=== PATIENT | female | born 2000 | race Caucasian/White ===

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

== ENCOUNTER → 2024-08-21 08:52 | Outpatient (BNVA) | payer MEDICAID, SELFPAY | PROVIDERS: PCP Nurse Practitioner Family; Visit Provider Nurse Practitioner Women's Health | DX: Z32.01 Encounter for pregnancy test, result positive (principal); N91.2 Amenorrhea, unspecified | CPT/HCPCS: 81025; 84702; 86850; 86900 ==

== ENCOUNTER → 2024-08-30 09:41 | Outpatient (BNVA) | payer MEDICAID, SELFPAY | PROVIDERS: PCP Nurse Practitioner Family; Visit Provider Obstetrics & Gynecology | DX: Z34.01 Encounter for supervision of normal first pregnancy, first trimester (principal) | CPT/HCPCS: 76801 ==

== ENCOUNTER → 2024-09-11 09:15 | Outpatient (BNVA) | payer MEDICAID, OTHER, SELFPAY | PROVIDERS: PCP Nurse Practitioner Family; Visit Provider Nurse Practitioner Women's Health | DX: Z34.90 Encounter for supervision of normal pregnancy, unspecified, unspecified trimester (principal); Z3A.08 8 weeks gestation of pregnancy | CPT/HCPCS: 80307; 81000; 84443; 85025; 86592; 86762; 86803; 86850; 86900; 87086; 87340; 87491; 87591; 87661; 87806 ==

== ENCOUNTER → 2024-10-10 11:55 | Outpatient (BNVA) | payer OTHER, MEDICAID, SELFPAY | PROVIDERS: PCP Nurse Practitioner Family; Visit Provider Nurse Practitioner Women's Health | DX: O21.9 Vomiting of pregnancy, unspecified (principal); Z3A.08 8 weeks gestation of pregnancy | CPT/HCPCS: 84315; 87624 ==

== ENCOUNTER → 2024-10-31 08:24 | Outpatient (BNVA) | payer OTHER, MEDICAID, SELFPAY | PROVIDERS: PCP Nurse Practitioner Family; Visit Provider Nurse Practitioner Women's Health | DX: Z34.90 Encounter for supervision of normal pregnancy, unspecified, unspecified trimester (principal) | CPT/HCPCS: 82105; 84315 ==

== ENCOUNTER → 2024-12-01 09:39 | Outpatient (BNVA) | payer MEDICAID, SELFPAY | PROVIDERS: PCP Nurse Practitioner Family; Visit Provider Obstetrics & Gynecology | DX: Z36.9 Encounter for antenatal screening, unspecified (principal) | CPT/HCPCS: 76805 ==

== ENCOUNTER → 2024-12-08 14:35 | Outpatient (BNVA) | payer MEDICAID, SELFPAY | PROVIDERS: PCP Nurse Practitioner Family; Visit Provider Obstetrics & Gynecology | DX: Z34.92 Encounter for supervision of normal pregnancy, unspecified, second trimester (principal) | CPT/HCPCS: 84315 ==

== ENCOUNTER → 2025-01-31 09:34 | Outpatient (BNVA) | payer BC, SELFPAY | PROVIDERS: PCP Nurse Practitioner Family; Visit Provider Nurse Practitioner Women's Health | DX: Z34.90 Encounter for supervision of normal pregnancy, unspecified, unspecified trimester (principal) | CPT/HCPCS: 82950; 84315; 85025 ==

== ENCOUNTER → 2025-02-14 08:18 | Outpatient (BNVA) | payer BC, SELFPAY | PROVIDERS: PCP Nurse Practitioner Family; Visit Provider Obstetrics & Gynecology | DX: Z34.90 Encounter for supervision of normal pregnancy, unspecified, unspecified trimester (principal) | CPT/HCPCS: 84315 ==

== ENCOUNTER → 2025-02-26 09:18 | Outpatient (BNVA) | payer BC, SELFPAY | PROVIDERS: PCP Nurse Practitioner Family; Visit Provider Obstetrics & Gynecology | DX: Z36.89 Encounter for other specified antenatal screening (principal) | CPT/HCPCS: 76816; 84315 ==

== ENCOUNTER → 2025-03-15 08:46 | Outpatient (BNVA) | payer BC, SELFPAY | PROVIDERS: PCP Nurse Practitioner Family; Visit Provider Obstetrics & Gynecology | DX: Z34.90 Encounter for supervision of normal pregnancy, unspecified, unspecified trimester (principal) | CPT/HCPCS: 76816; 84315 ==

== ENCOUNTER 2025-03-16 17:20 | Outpatient (CLI) | payer BC, SELFPAY ==
[2025-03-16] VITALS (9 sets, daily range): BP systolic 117–135; BP diastolic 69–88; PULSE 83–110; O2SAT 100; BMI 36.9
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
== END 2025-03-16 20:36 | disposition home or self-care (01) ==
LOC: OPOB 17:26 → OBGYN 17:27
PROVIDERS: PCP Nurse Practitioner Family; Visit Provider Obstetrics & Gynecology
DX: O26.893 Other specified pregnancy related conditions, third trimester (principal); Z3A.35 35 weeks gestation of pregnancy; V89.2XXA Person injured in unspecified motor-vehicle accident, traffic, initial encounter
CPT/HCPCS: 59025; 99211

== ENCOUNTER → 2025-03-26 08:50 | Outpatient (BNVA) | payer BC, MEDICAID, SELFPAY | PROVIDERS: PCP Nurse Practitioner Family; Visit Provider Obstetrics & Gynecology | DX: Z34.90 Encounter for supervision of normal pregnancy, unspecified, unspecified trimester (principal) | CPT/HCPCS: 84315; 87081 ==

== ENCOUNTER → 2025-04-02 08:22 | Outpatient (BNVA) | payer BC, MEDICAID, SELFPAY | PROVIDERS: PCP Nurse Practitioner Family; Visit Provider Obstetrics & Gynecology | DX: Z34.90 Encounter for supervision of normal pregnancy, unspecified, unspecified trimester (principal) | CPT/HCPCS: 84315 ==

== ENCOUNTER → 2025-04-09 08:11 | Outpatient (BNVA) | payer BC, SELFPAY | PROVIDERS: PCP Nurse Practitioner Family; Visit Provider Obstetrics & Gynecology | DX: Z34.90 Encounter for supervision of normal pregnancy, unspecified, unspecified trimester (principal) | CPT/HCPCS: 84315 ==

== ENCOUNTER → 2025-04-16 08:05 | Outpatient (BNVA) | payer BC, MEDICAID, SELFPAY | PROVIDERS: PCP Nurse Practitioner Family; Visit Provider Obstetrics & Gynecology | DX: Z34.90 Encounter for supervision of normal pregnancy, unspecified, unspecified trimester (principal) | CPT/HCPCS: 84315 ==

== ENCOUNTER 2025-04-20 23:33 | Inpatient (IN) | payer BC, MEDICAID, SELFPAY ==
[2025-04-20] VITALS (7 sets, daily range): BP systolic 126–139; BP diastolic 80–93; PULSE 88–96; BMI 37.6
[2025-04-20 23:51] LABS: Hematocrit 37.1 % (36-47); Hemoglobin 11.80 g/dL (11.27-16.99); Mean Corpuscular HGB Conc 31.8 g/dL (30-55); Mean Corpuscular Hemoglobin 27.1 pg (27-33); Mean Corpuscular Volume 85.3 fl (85-98); Nucleated Red Blood Cells % 0 %; Platelet Count 259 10^3/cmm (157-399); Red Blood Count 4.35 10^6/uL (3.85-5.65); White Blood Count 13.29 10^3/uL (3.29-11.43)
[2025-04-21] VITALS (92 sets, daily range): BP systolic 111–157; BP diastolic 52–100; PULSE 79–134; RESP 15–17; TEMP 36.7–37.6; O2SAT 98
[2025-04-21] MEDS: fentaNYL 50 mcg/mL INJ 2mL IVP ×4 (00:21→07:59)
--- NOTE | 2025-04-21 07:14 | PM.OPHPUD ---
Labor & Delivery H&P Update Date of Procedure: April 21, 2025 Date H&P Performed: 04/16/25 Changes to previous documentation: 24-year-old female G1, P0 at 40.2 weeks gestation with JANETH 04/19/2025 by ultrasound. Patient was admitted last night to labor and delivery with complaints of onset of uterine contractions and possible SROM. Patient denied any vaginal bleeding. Nursing staff did pelvic exam and acti prom?negative. Patient's contractions spaced out became irregular through the night although at times she stated her pain was 7 out of 10 and required pain medicine. In review of patient's medical record, I reviewed with her early labor and reviewed the options of going home resting our AROM with possible use of Pitocin to increase uterine contraction frequency and intensity to assist with labor. Patient agreed with AROM and the use of Pitocin. Cervical exam was initially 1 cm, patient presently 4 cm / 80%/-1 vertex presentation. AROM?light meconium stained fluid noted. EFM?category 1, with contractions q. 8 to 10 minutes, some coupling noted. Admission Diagnosis: Planned procedure: Will augment patient's labor with AROM and possibly Pitocin if needed. Risk and benefits reviewed. Related Problem List Diagnoses 1. 40 weeks gestation of :
[2025-04-21] MEDS: oxytocin 30 UNIT/500 ML BAG IV (10:16)
--- NOTE | 2025-04-21 11:21 | P.ANESASSM_ITS ---
Pre-Anesthetic Assessment Height/Weight: Height 1.75 m Weight 115.666 kg Temp Pulse Resp BP Pulse Ox O2 Del Method 98.0 F 104 H 15 134/78 98 Room Air 04/21/25 10:30 04/21/25 09:08 04/21/25 07:59 04/21/25 09:08 04/21/25 00:21 04/21/25 00:02 Social No alcohol and No tobacco Exam alert, oriented x 3, clear to auscultation bilaterally and regular rate & rhythm Airway Submandibular: within normal limits Cervical ROM: within normal limits Mallampati: Class II Dentition: full Pulmonary None reported CV/HEM None reported None reported Hepatic None reported GI Gastroesophageal Reflux Disease Metabolic None reported Musc/skel None reported Neuropsych None reported Anesthetic Plan ASA status: 2 Anesthesia: Regional (specify below) Other: Epidural Medications/Allergies Home Medications ?Medication ?Instructions ?Recorded ?Confirmed ?Last Taken ?Type No Known Home Medications 01/31/25 070 05/04 Unknown History Allergies Allergy/AdvReac Type Severity Reaction Status Date / Time No Known Allergies Allergy Verified 04/20/25 21:03 Current Medications Generic Name Dose Route Start Last Admin Trade Name Freq PRN Reason Stop Dose Admin Fentanyl 25 - 100 mcg 04/20/25 23:08 04/21/25 07:59 Fentanyl 50 Mcg/Ml Inj 2ml IVP 50 mcg Q1H PRN Administration SEVERE PAIN Oxytocin 30 unit in 500 mls @ 1 mls/hr 04/21/25 09:45 04/21/25 10:51 Pitocin IV 2 milliunit/min .Q24H CATRACHITO 2 mls/hr Protocol Titration 1 MILLIUNIT/MIN Sodium Chloride 1,000 mls @ 999 mls/hr 04/21/25 09:56 04/21/25 10:15 Sodium Chloride 0.9% IV 999 mls/hr .Q1H1M PRN Administration See label comments PFSH Anesthesia Medical History (Updated 04/21/25 @ 07:21 by Keyana Norwood DO) No pertinent past medical history NegHx: HTN,DM,Thyroid,DVT/PE PCP: Dr. Rajput No significant medical problems Surgical History No significant past surgical history Family History Mother Diabetes Hypertension Grandfather Heart disease Hypercholesteremia Grandfather Hypercholesteremia Other Hyperlipidemia Denies family history of Colon cancer Ovarian cancer Breast cancer Uterine cancer Thyroid disease Social History Smoking and tobacco/nicotine status: never used tobacco/nicotine Substance/Drug Use: never Female Reproductive History : 1 Data Anesthesia 04/20/25 23:20 Short CBC 04/20/25 Range/Units 23:20 WBC 13.29 H (3.29-11.43) 10^3/uL Hgb 11.80 (11.27-16.99) g/dL Hct 37.1 (36-47) % MCV 85.3 (85-98) fl Plt Count 259 (157-399) 10^3/cmm Neut % (Auto) 86.2 % Neut # (Auto) 11.46 H (1.8-7.7) 10^3/uL Blood Bank 04/20/25 23:20 Blood Type O Positive Rho(D) Type Rh positive Antibody Screen Negative
[2025-04-21] MEDS: ROPivacaine premix 100 MG/50 ML PREMIX 13 MG EPIDURAL (11:55)
--- NOTE | 2025-04-21 12:00 | P.ANES_ITS ---
Anesthesia Procedures Procedure/Date: 04/21/25 Labor Epidural Epidural: Time Out Performed: Yes Consents Signed: Procedure Consent Consent: from patient, risks and benefits reviewed and patient agrees to proceed Lumbar Level: L4-L5 Epidural position: sitting Epidural procedure: sterile prep of area, 1% lidocaine to numb the area, negative for paresthesia passed, neg for paresthesia, test dose given, 1.5% xylocaine 1:200k epi (5 ml), 0.2% Ropivacaine bolus ml (5), placed PCEA, no systemic response, sterile dr essing applied, L.U.D. no apparent complications and 0.2% Ropiavacaine @ mls/hr (13ml) Additional Comments: KENNY at 8cm on second attempt - heme -csf, catheter threaded to 13cm with ease. sterile dressing applied patient positioned supine. Patient educated on bolus feature of PCEA. Adequate analgesia.
--- NOTE | 2025-04-21 16:37 | P.PN_ITS ---
MANAGER DOCUMENT CONTROL Subjective 2 Subjective: Interval history: 24-year-old female G1, P0 at 40.2 weeks gestation, labor augmented with AROM and Pitocin currently at 9 milliunits. Cervix?9 cm / 100%/0 vertex with light meconium stained fluid. Patient comfortable with epidural. Discussion of pushing with contractions a complete dilatation, may need to discontinue epidural for adequate pushing. Trial of pushing demonstrated with no pushing power noted. Patient understands. Labor: Station: -1 Amniotic Membrane Status: Ruptured Monitor Mode: External Contraction Pattern: Regular Vitals/I&O/Wt Last Vital Signs Temp 98.1 F 04/21/25 12:34 Pulse 118 H 04/21/25 16:24 Resp 15 04/21/25 07:59 BP 122/52 04/21/25 16:24 Pulse Ox 98 04/21/25 00:21 O2 Del Method Room Air 04/21/25 00:02 04/21/25 04/21/25 04/21/25 06:59 14:59 22:59 Intake Total 15.083 / 15.083 .083 Balance 15.083 / 15.083 .083 Weight last 48 hrs Weight 115.666 kg Physical Exam 2 Urinary Catheter Management: Ball Latex: Cath Placed During This Visit: yes Urinary Catheter Date of Insertion: 04/21/25 Urinary Catheter Time of Insertion: 12:35 Data 04/20/25 23:20 A&P Assessment and plan 1. 40 weeks gestation of : PDMP PDMP Reviewed: Not Reviewed Attestations 2 Medical Necessity Statement*: Patient admitted to labor and delivery in early labor for management of labor at 40.2 weeks gestation Coding Level of Care Code Acute Code for Chg Fwd Diagnoses 40 weeks gestation of Z3A.40
--- NOTE | 2025-04-21 18:30 | P.PCNOB_ITS ---
Delivery Note: Date of delivery: April 21, 2025 Pre-delivery diagnoses: 24-year-old at 40.2 weeks gestatio n Early labor Meconium stained fluid Post-delivery diagnoses: Viable male 7 pounds 9 ounces Procedure: 1. Augmentation of labor with AROM and low-dose Pitocin 2. of viable male Op report anesthesia: Epidural Delivering Physician: Keyana Norwood DO Estimated blood loss (mL): 300 Pre-Delivery Course: 24-year-old female admitted to lab or and delivery with complaint of onset of contractions and possible SROM. Active PROM was negative with uterine contractions every 5 to 6 minutes. Contractions spaced out, augmentation of labor was reviewed with patient to include AROM and Pitocin if needed. Patient had progressed before AROM to 4 cm. Patient progressed after AROM and Pitocin of 11 milliunits to complete dilatation +1 station. Delivery: 24-year-old female G1, P1 delivered a vi able male baby via at 40.2 weeks gestation. After complete dilatation the patient pushed with contractions with nursing instructions. The vertex presented in OA presentation with compound presentation of left hand. The posterior arm was delivered followed by the anterior arm and shoulder. The remainder the baby's body followed with spontaneous cry. After delaying of the cord clamping, the cord was clamped and cut and baby placed on mother's abdomen for bonding. Nursing staff dried and stimulated baby and bulb suction. Good robust cry resulted. Cord gas was drawn as well as cord blood and handed off. The placenta presented in a [place] presentation with trailing membranes and Pitocin IV solution was given in a bolus manner. The uterus was massaged and firmed well. The vaginal vault was explored with a small left labial laceration noted. This was repaired with 3-0 Vicryl and 2 simple interrupted stitches. Patient's uterus was massaged again and remained firm. Mother and infant are both in stable and satisfactory condition Post-Delivery Status: Stable History History History 1 Term 1 0 Miscarriages/Ectopic 0 Living Children 1 Past Pregnancies Del. Date GA/Weeks Outcome Route Wt Inf Gender Labor Lgth Comp. Anesth esia Location 04/21/25 40 live - full term Vaginal 3.43 kg Male regional A&P Assessment and plan 1. Spontaneous vaginal delivery: Meconium stained fluid Compound presentation 2. 40 weeks gestation of : Plan: Began care PDMP PDMP Reviewed: Not Reviewed Coding Level of Care Code Acute Code for Chg Fwd Diagnoses Spontaneous vaginal delivery O80 40 weeks gestation of Z3A.40
[2025-04-21] MEDS: benzocaine-menthol 78 gm Canister 1 SPRAY TOPICAL (20:50)
[2025-04-22] VITALS: BP 111/66; PULSE 98; RESP 16; TEMP 36.7; O2SAT 99
[2025-04-22 04:00] VITALS: BP 115/79; PULSE 94; RESP 15; TEMP 36.7; O2SAT 99
[2025-04-22 09:02] LABS: Hematocrit 33.0 % (36-47); Hemoglobin 10.40 g/dL (11.27-16.99); Mean Corpuscular HGB Conc 31.5 g/dL (30-55); Mean Corpuscular Hemoglobin 27.1 pg (27-33); Mean Corpuscular Volume 85.9 fl (85-98); Platelet Count 249 10^3/cmm (157-399); Red Blood Count 3.84 10^6/uL (3.85-5.65); White Blood Count 14.32 10^3/uL (3.29-11.43)
[2025-04-22] MEDS: PRENATAL VIT NO.130/IRON/FOLIC 1 EACH TABLET PO (09:26)
[2025-04-22 09:56] VITALS: BP 116/78; PULSE 84; TEMP 36.6
--- NOTE | 2025-04-22 15:12 | PM.OBGYDC ---
Discharge Providers PLODDING OPERATOR Date of Admission: 04/20/25 23:33 Date of Discharge: 04/22/25 Attending Provider at Admission: Keyana Norwood DO Attending Provider at Discharge: Keyana Norwood DO Primary PLODDING OPERATOR: Dr. Bill Figueroa Primary Care Provider: TREVOR Ontiveros Diagnoses at Discharge Discharge Diagnosis 1. Spontaneous vaginal delivery: Details from hospital stay: 24-year-old female delivered on 04/21/2025 via of viable baby boy 7 pounds 9 ounces. Patient is up in room ambulating voiding, breast-feeding without difficulty. Patient denies headaches, blurred vision, chest pain or shortness of breath. She denies any excessive vaginal bleeding or passage of large clots. VSS, afebrile Abdomen?soft, fundus firm 4 cm below umbilicus. Lochia?light rubra. Extremities?no edema. Discussion of expectations and discharge expectations to include no heavy lifting pushing or pulling no sexual intercourse x 6 weeks. Patient is encouraged to continue her vitamins which she has at home. Patient is to continue a high-fiber high-protein diet with increased fluids. follow-up in 4 to 6 weeks to be scheduled. 2. 40 weeks gestation of : Reason for Visit Reason for Visit: ctx 5 min apart Hospital Course Hospital Course As above Information Peripartum Data: Delivery Method: Vaginal Laceration description: Labial Episiotomy description: None complications: none Physical Exam Urinary Catheter Management: Ball Latex: Cath Placed During This Visit: yes, but has since been removed by the nurse Reason for Continuing Indwelling Catheter: Decision to DC Catheter Urinary Catheter Date of Insertion: 04/21/25 Urinary Catheter Time of Insertion: 12:35 Date Urinary Catheter Removed: 04/21/25 Time Urinary Catheter Discontinued: 17:41 History History History 1 Term 1 0 Miscarriages/Ectopic 0 Living Children 1 Past Pregnancies Del. Date GA/Weeks Outcome Route Wt Inf Gender Labor Lgth Comp. Anesthesia Location 04/21/25 40 live - full term Vaginal 3.43 kg Male regional Discharge Data Studies Completed and Pending Laboratory Results WBC 14.32 10^3/uL (3.29-11.43) H 04/22/25 08:11 RBC 3.84 10^6/uL (3.85-5.65) L 04/22/25 08:11 Hgb 10.40 g/dL (11.27-16.99) L 04/22/25 08:11 Hct 33.0 % (36-47) L 04/22/25 08:11 MCV 85.9 fl (85-98) 04/22/25 08:11 MCH 27.1 pg (27-33) 04/22/25 08:11 MCHC 31.5 g/dL (30-55) 04/22/25 08:11 RDW 15.3 % (12.1-15.1) H 04/22/25 08:11 Plt Count 249 10^3/cmm (157-399) 04/22/25 08:11 MPV 9.8 fL (7.4-10.4) 04/22/25 08:11 Neut % (Auto) 86.2 % 04/20/25 23:20 Lymph % (Auto) 6.6 % 04/20/25 23:20 Villalba % (Auto) 5.8 % 04/20/25 23:20 Eos % (Auto) 0.6 % 04/20/25 23:20 Baso % (Auto) 0.2 % 04/20/25 23:20 Neut # (Auto) 11.46 10^3/uL (1.8-7.7) H 04/20/25 23:20 Lymph # (Auto) 0.9 10^3/uL (0.8-4.8) 04/20/25 23:20 Villalba # (Auto) 0.8 10^3/uL (0.2-0.9) 04/20/25 23:20 Eos # (Auto) 0.1 10^3/uL (0.0-0.8) 04/20/25 23:20 Baso # (Auto) 0.0 10^3/uL (0.0-0.1) 04/20/25 23:20 Nucleated RBC % (auto) 0 % 04/20/25 23:20 Nucleated RBCs # 0.0 /100WBC 04/20/25 23:20 Insulin-like GF I Negative 04/20/25 20:50 Blood Type O Positive 04/20/25 23:20 Rho(D) Type Rh positive 04/20/25 23:20 Antibody Screen Negative 04/20/25 23:20 Vitals Last Vital Signs Temp 97.9 F 04/22/25 09:56 Pulse 84 04/22/25 09:56 Resp 15 04/22/25 04:00 BP 116/78 04/22/25 09:56 Pulse Ox 99 04/22/25 04:00 O2 Del Method Room Air 04/22/25 09:56 Results Labs OB ([facility]): Obstetrics US 03/15/25 Blood Type O Positive 04/20/25 Antibody Screen Negative 04/20/25 Hct, (36-47) 33.0 % L Today Hgb, (11.27-16.99) 10.40 g/dL L Today Rho(D) Type Rh positive 04/20/25 Plt Count, (157-399) 249 10^3/cmm Today Hep Bs Antigen, (Nonreactive) Non-reactive 09/11/24 Hepatitis C Antibody, (Nonreactive) Non-reactive 09/11/24 Rubella IgG Antibody, (0.0-10.0) > 500.0 IU/mL H 09/11/24 RPR, (Nonreactive) Nonreactive 09/11/24 HIV 1&2 Ab & HIV 1 Ag, (Non-Reactiv) Non-reactive 09/11/24 TSH, (0.27-4.20) 1.08 uIU/mL 09/11/24 Glucose 1 Hr 50 gm, (85-140) 119 mg/dL 01/31/25 Ser , Semi-Qnt 27892.00 mIU/mL 08/21/24 HCG, Qual, (Negative) Positive H 08/21/24 Urine Opiates Screen, (Negative) Negative ng/mL 09/11/24 Ur Barbiturates Screen, (Negative) Negative ng/mL 09/11/24 Ur Phencyclidine Scrn, (Negative) Negative ng/mL 09/11/24 Ur Amphetamines Screen, (Negative) Negative ng/mL 09/11/24 U Benzodiazepines Scrn, (Negative) Negative ng/mL 09/11/24 Urine Cocaine Screen, (Negative) Negative ng/mL 09/11/24 U Marijuana (THC) Screen, (Negative) Negative ng/mL 09/11/24 Micro Urine Specimen 09/11/24 Pap Smear Interpret See note A 10/10/24 Discharge Plan Discharge Patient Disposition: Home Condition: Stable Prescriptions: No Action No Known Home Medications Discharge Order = DC NOW: Discharge Order (Routine); Ordered 04/22/25 Ordered By: Keyana Norwood Discharge Diet: Regular Discharge Activity: Increase activity as tolerated Patient Instructions: Depression (DC), Bleeding (DC), Preeclampsia and Eclampsia After Delivery (GEN), Hemorrhage (DC), OB Discharge Report, Opioid Safety, OB Home Care, OB Proud Parent Packet, OB Vaginal Deliveries - [facility], Patient Portal & Yi Instructions Activity Restrictions/Additional Instructions: No heavy lifting pushing or pulling no sexual intercourse x 6 weeks. Patient to continue vitamins daily until no longer breast-feeding. Assessment: 1. S/p viable male at 40.2 weeks gestation Plan of Treatment: DC to home after 6:30 PM. Follow-up at the women's clinic in 4 to 6 weeks for visit. Discharge Attestations PLODDING OPERATOR Time Spent in Discharge Care*: less than 30 min Coding Level of Care Code Acute Code for Chg Fwd Diagnoses Spontaneous vaginal delivery O80 40 weeks gestation of Z3A.40
[2025-04-22 16:18] VITALS: BP 118/80; PULSE 90; TEMP 36.6
[2025-04-22 18:50] VITALS: BP 150/72; PULSE 75; TEMP 36.7
[2025-04-22 19:30] VITALS: BP 146/70; PULSE 78; RESP 16; TEMP 36.7; O2SAT 98
== END 2025-04-22 19:42 | disposition home or self-care (01) | DRG 807 ==
LOC: OPOB 23:33 → OBGYN 23:33
PROVIDERS: Admitting Provider Obstetrics & Gynecology; PCP Nurse Practitioner Family; Visit Provider Obstetrics & Gynecology
DX: O48.0 Post-term pregnancy (principal); Z37.0 Single live birth; Z3A.40 40 weeks gestation of pregnancy; O70.0 First degree perineal laceration during delivery
CPT/HCPCS: 36415; 51702; 59025; 59409; 84112; 85025; 85027; 86850; 86900; 96374; 96376; 99211; J2590; J2795; J3010; J7030; J7121; J9999

== ENCOUNTER → 2025-06-20 14:20 | Outpatient (BNVA) | payer BC, MEDICAID, SELFPAY | PROVIDERS: PCP Nurse Practitioner Family; Visit Provider Nurse Practitioner Women's Health | DX: Z30.017 Encounter for initial prescription of implantable subdermal contraceptive (principal) | CPT/HCPCS: 81025 ==